=== PATIENT | male | born 1965 | race Caucasian/White ===

== ENCOUNTER 2024-03-01 13:45 | Outpatient (AMB) | payer BC, SELFPAY ==
--- NOTE | 2024-03-01 13:55 | MHC.OFFVIS ---
Vital Signs 03/01/24 14:08 Height 5 ft 9 in Weight 180 lb BMI 26.6 BP 116/75 Blood Pressure Location Lt brachial Position Sitting Pulse 87 Intake Visit Reasons: Colonoscopy Screening Intake Note: Patient 3rd pre colonoscopy screening Patient cc: abdominal bloating and light headaches. 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 Accompanied by: Self / Same As Patient Allergies No Known Allergies Allergy (Verified 03/01/24 13:50) HPI Comments Details: A 59 y/o male hx colon polyps- last 2017 as well as 2015 both done at [facility] normal Appetite is good No respiratory or cardiac issues No nausea, vomiting, abdominal pain, hematemesis, hematochezia fever or chills PFSH Surgical History History of vasectomy Hx of shoulder surgery Hx of colonoscopy Social History Household Members: Family Household Members Other:: 2 kids Alcohol intake: current Comment: social Patient Tobacco Use Status: Never used Tobacco Current occupational status: employed Review of Systems Const Details: All systems reviewed and are negative All systems reviewed & are unremarkable except as noted in HPI and below Card Denies chest pain and Denies dyspnea Resp Denies dyspnea GI Denies abdominal pain, Denies change in bowel habits, Denies nausea and Denies vomiting Physical Exam Const General: cooperative, healthy appearing, comfortable and no acute distress Orientation/consciousness: patient oriented x3 Limitations: no limitations Resp Effort & Inspection: normal respiratory effort and able to speak in complete sentences Auscultation: clear to auscultation bilaterally, no rales, no rhonchi and no wheezes Cardio Rate: regular rate Rhythm: regular rhythm Heart sounds: S1 normal heart sound present and S2 normal heart sound present GI Palpation (GI): Soft to palpation and nontender Auscultation: normal bowel sounds Skin General skin exam: no rashes or lesions noted Neuro General: patient oriented x3 Extrem General: Yes full ROM Psych Appearance: grossly normal and well kempt Mental Status: mental status grossly normal Speech and movement: Normal speech and movement present and Clear speech present Affect: normal affect Attitude: cooperative Thought process: Normal thought process present Thought content: Normal thought content present Insight: Good insight present (Psych) Judgement: Good judgement present (Psych) Assessment & Plan Assessment & Plan (1) History of colon polyps: Comment: 2014, 2017-[facility] Code(s): Z86.010 - Personal history of colonic polyps Category: Medical Plan: Polyp surveillance colonoscopy (2) Sessile colonic polyp: Comment: 2014 Code(s): K63.5 - Polyp of colon Category: Medical Plan: Rare risks review (3) Hx of colonoscopy: Code(s): Z98.890 - Other specified postprocedural states Plan Polyp surveillance colonoscopy MiraLax Gatorade Orders: Orders Colonoscopy - GI Use Only Today K63.5 - Polyp of colon, Z86.010 - Personal history of colonic polyps Medications: New bisacodyl (Dulcolax (bisacodyl)) Day before procedure @ 12 noon Take 4 tablets by mouth followed by large glass of water 20 mg (4 x 5 mg) PO ONCE 1 day PRN 4 tabs 0RF colonoscopy prep Z12.11 - Encounter for screening for malignant neoplasm of colon polyethylene glycol 3350 (Miralax) Take as directed by mouth the day before your procedure. 238 grams PO ONCE 1 day PRN 238 grams 0RF laxative effect Patient Instructions: Polyp surveillance colonoscopy MiraLax Gatorade prep, reviewed literature given Need for escort to to anesthesia Encouraged to call questions or concerns Coding Level of Care Code New Pt Level 3 (90967) Diagnoses History of colon polyps Z86.010 Sessile colonic polyp K63.5 Hx of colonoscopy Z98.890 Time Spent (min) 25
[2024-03-01 14:08] VITALS: BP 116/75; PULSE 87; BMI 26.6
== END 2024-03-01 15:10 | disposition home or self-care (01) ==
PROVIDERS: PCP Nurse Practitioner Family; Visit Provider Physician Assistant
DX: Z01.818 Encounter for other preprocedural examination (principal); Z12.11 Encounter for screening for malignant neoplasm of colon; Z86.010 Personal history of colon polyps
CPT/HCPCS: S0285

== ENCOUNTER → 2024-03-01 13:45 | Outpatient (BNVA) | payer BC, SELFPAY | PROVIDERS: Visit Provider Physician Assistant ==

== ENCOUNTER 2024-09-23 10:16 | Day surgery (SDC) | payer BC, SELFPAY ==
--- NOTE | 2024-09-21 13:18 | P.CONAN_ITS ---
Documented by User: Pamella Chaudhry NP 09/21/24 13:18 HPI - Anesthesia Eval Consult details Narrative: 59yo M for Colonoscopy PMFSH Active Problems Active Problems: All Active Problems Sessile colonic polyp (Acute) History of colon polyps (Acute) Past Medical History Medical History HLD (hyperlipidemia) HTN (hypertension) Surgical History Surgical History History of vasectomy Hx of shoulder surgery Hx of colonoscopy Social History Social History Household Members: Family Household Members Other:: 2 kids Alcohol intake: current Alcohol intake frequency: a few times a week Comment: social Patient Tobacco Use Status: Never used Tobacco Substance Use Frequency: Occasionally Have you been hit, kicked, punched, or otherwise hurt by someone within the past year? If so, by whom?: No Advance Directives: No Advance Directives Information Provided: Yes Recently lost weight without trying: No Nutrition Risks: No Nutritional Risk Poor oral hygiene: No Current occupational status: employed Meds Allergies Allergy/AdvReac Type Severity Reaction Status Date / Time No Known Allergies Allergy Verified 03/01/24 13:50 Home Medications ?Medication ?Instructions ?Recorded ?Confirmed ?Last Taken ?Type amlodipine 5 mg tablet 5 mg PO DAILY 09/22/24 09/22/24 09/23/24 History olmesartan 5 mg tablet 10 mg PO DAILY 09/22/24 09/22/24 09/23/24 History Assessment and Plan Assessment Anesthesia Assessment: Chart Reviewed Documented by User: Leigh Ann Green MD 09/23/24 11:41 PMFSH Past Medical History Medical History HLD (hyperlipidemia) HTN (hypertension) Family History Family history of problems with anesthesia: No Surgical History Surgical History History of vasectomy Hx of shoulder surgery Hx of colonoscopy History of Problems with Anesthesia: No Social History Social History Household Members: Family Household Members Other:: 2 kids Alcohol intake: current Alcohol intake frequency: a few times a week Comment: social Patient Tobacco Use Status: Never used Tobacco Substance Use Frequency: Occasionally Have you been hit, kicked, punched, or otherwise hurt by someone within the past year? If so, by whom?: No Advance Directives: No Advance Directives Information Provided: Yes Recently lost weight without trying: No Nutrition Risks: No Nutritional Risk Poor oral hygiene: No Current occupational status: employed Meds Allergies Allergy/AdvReac Type Severity Reaction Status Date / Time No Known Allergies Allergy Verified 03/01/24 13:50 Home Medications ?Medication ?Instructions ?Recorded ?Confirmed ?Last Taken ?Type amlodipine 5 mg tablet 5 mg PO DAILY 09/22/24 09/22/24 09/23/24 History olmesartan 5 mg tablet 10 mg PO DAILY 09/22/24 09/22/24 09/23/24 History Exam Height,Weight and Vital Signs: Height 5 ft 9 in Weight 81.647 kg Vital Signs Temp Pulse Resp BP Pulse Ox O2 Del Method 09/23/24 10:50 97.3 F 90 18 151/87 H 97 Room Air Airway Mallampati Class: III TM Dist: >3cm Neck ROM: Full Loose/Missing/Broken Teeth: No Heart: RRR Lungs: CTAB Assessment and Plan Assessment Anesthesia Assessment: Anesthesia Plan Discussed and Chart Reviewed Final Anesthetic Review Family History of Problems with Anesthesia: No History of Problems with Anesthesia: No NPO: Yes ASA Class: II Final Preanesthetic Review: No Changes in Pt Med Stat, Meds/Allgs Chart Review ed, Consent Obtained/Reviewed and Anes Risks/Benef Reviewed Patient Risk: Low Procedure Risk: Low Assessment/Block/Sedation in SS: Assess/Block/Sedation-SS Anesthetic Plan Anesthetic Plan: TIVA Disposition: Standard PACU
[2024-09-21 13:28] VITALS: BMI 26.6
--- NOTE | 2024-09-23 10:38 | MHC.SHP ---
Pre-Procedural Eval Section A - 24 Hr Update-Section A only Date of Service: 09/23/24 The patient is an INPATIENT: No The patient has been examined within 24 hours of the surgical procedure. The History & Physical has been completed within 30 days and I have reviewed it.: No Section B - Complete if H&P > 30 days Chief Complaint: Surveillance for colon polyps Relevant Family History (Specify if Yes): No Relevant Social History: None Present Medications: see Short Stay Collaborative assessment Medical History: Significant History (Hypertension, hyperlipidemia) History of Previous Operations: Relevant previous surgery/procedure and date(s) (History of vasectomy Hx of shoulder surgery Hx of colonoscopy) Allergies: Allergies Allergy/AdvReac Type Severity Reaction Status Date / Time No Known Allergies Allergy Verified 03/01/24 13:50 Review of Systems Sugical H&P ROS: Negative: Constitution, Cardiovascular, Respiratory and Gastrointestinal Exam Surgical H&P Exam: Normal: Heart, Normal: Lungs, Normal: Extremities and Normal: Abdomen Plan Diagnosis/Plan: Unchanged I have reviewed the history and physical and performed a pertinent physical examination on my patient. No changes have occurred unless specified. Time Spent With Patient Time: Total time managing care of this patient today ____ minutes.
[2024-09-23 10:50] VITALS: BP 151/87; PULSE 90; RESP 18; TEMP 36.3; O2SAT 97
--- NOTE | 2024-09-23 12:24 | HO.OPN-COLON ---
Colonoscopy Operative Note Operative Note Date of Service: 09/23/24 Narrative: COLONOSCOPY TILL CECUM WITH SNARE POLYPECTOMY, SUBMUCOSAL INJECTION AND HEMOCLIP PLACEMENT Pre-op diagnosis: Surveillance for colon polyps. Post-op diagnosis:? Colon polyps, Diverticulosis, hemorrhoids Endoscopist:? Frankie Cintron MD Anesthesia:?MAC Consent: Indications for the procedure and potential complications of bleeding, perforation, reaction to medications and missed diagnosis were discussed with the patient and informed consent was obtained. Instrument: Olympus CF H 190 L variable stiffness adult colonoscope Monitoring: Vital signs and clinical assessment, intermittent blood pressure monitoring, continuous EKG monitoring, Pulse oximetry and Carbon Dioxide monitoring were done throughout the procedure. Please see anesthesia flowsheet. Colon withdrawl time was 24 minutes. Procedure: The patient was placed in the left lateral decubitis position and pre-procedure medications were administered. After a digital rectal examination of the ano-rectum, the video colonoscope was inserted into the rectum and advanced through the colon to the cecum. The colonoscope was slowly withdrawn in a retrograde panoramic fashion and the colon mucosa was carefully examined including a retroflexed view of the rectum. Findings and interventions are described below. Procedure Difficulty: without difficulty Findings: Terminal Ileum: Not evaluated Cecum: Normal Ascending Colon: A 2 cms flat polyp in the proximal AC at 80 cms. Polyp was raised with 5 cc of Eleview and removed with a stiff hot snare. Polypectomy site was treated with cautery using the snare tip, marked by jovanna ink and closed 1 hemoclip A 6-7 mm sessile polyp in the distal ascending colon - removed with a cold snare Transverse Colon: Normal Descending Colon: Moderate diverticulosis Sigmoid Colon: Moderate diverticulosis Rectum: A 5-6 mm diminutive appearing polyp - removed with a cold snare Ano-rectum: Moderate internal hemorrhoids Colon preparation: Excellent, after some irrigation. [place] Bowel Preparation Scale Right colon; 3 Transverse colon: 3 Left colon; 3 (0 = Unprepared colon segment with mucosa not seen due to solid stool that cannot be cleared. 1 = Portion of mucosa of the colon segment seen, but other areas of the colon segment not well seen due to staining, residual stool and/or opaque liquid. 2 = Minor amount of residual staining, small fragments of stool and/or opaque liquid, but mucosa of colon segment seen well. 3 = Entire mucosa of colon segment seen well with no residual staining, small fragments of stool or opaque liquid) Impression and Post Procedure Diagnosis: Colonoscopy Findings: Two small and one medium sized polyps were removed Moderate diverticulosis seen in the left colon Moderate hemorrhoids on retroflexed exam. Plan: I will send a letter with biopsy results Repeat Colonoscopy in 3 - 5 years if polyps are adenomatous and due to history of adenomatous colon polyps Above findings were reviewed with the patient and relevant handouts were given and the discharge area.
[2024-09-23 12:26] VITALS: BP 86/53; PULSE 70; RESP 15; TEMP 36.1; O2SAT 95
[2024-09-23 12:41] VITALS: BP 99/60; PULSE 63; RESP 16; O2SAT 97
[2024-09-23 12:55] VITALS: BP 113/76; PULSE 69; RESP 16; TEMP 36.2; O2SAT 98
== END 2024-09-23 13:47 | disposition home or self-care (01) ==
PROVIDERS: PCP Nurse Practitioner Family; Visit Provider Internal Medicine Gastroenterology
PROC: 0DJD8ZZ Inspection of Lower Intestinal Tract, Via Natural or Artificial Opening Endoscopic (ICD-10-PCS; CPT 45378; principal; 2024-09-23 12:20)
DX: Z12.11 Encounter for screening for malignant neoplasm of colon (principal); Z86.0101 Personal history of adenomatous and serrated colon polyps; D12.2 Benign neoplasm of ascending colon; K62.1 Rectal polyp; K57.30 Diverticulosis of large intestine without perforation or abscess without bleeding; K64.8 Other hemorrhoids; I10 Essential (primary) hypertension; E78.5 Hyperlipidemia, unspecified; Z79.899 Other long term (current) drug therapy; Z98.52 Vasectomy status; Z98.890 Other specified postprocedural states
CPT/HCPCS: 45385; 45381; 88305; J2003; J2704

== ENCOUNTER → 2024-09-23 10:16 | Outpatient (BNV) | payer BC, SELFPAY | PROVIDERS: PCP Nurse Practitioner Family; Visit Provider Internal Medicine Gastroenterology | DX: Z12.11 Encounter for screening for malignant neoplasm of colon (principal); Z86.0100 Personal history of colon polyps, unspecified; D12.2 Benign neoplasm of ascending colon; K62.1 Rectal polyp | CPT/HCPCS: 45381; 45385 ==